=== PATIENT | female | born 1995 | race Caucasian/White ===

== ENCOUNTER 2017-02-09 17:25 | Emergency (ER) | payer OTHER ==
[~2017-02-09] VITALS: Ht 172.7 cm; Wt 81.6 kg
[~2017-02-09 17:25] MED LIST: ALBUTEROL0.09 MG/A1 INH; AMOXICILLIN500 M3 PO; AUGMENTIN 875-875 MG PO; BACTRIM DS 8001 TA1 PO; FLOVENT DI250 MCG/Ac INH; Flovent 220 M220 MCG INH; KEFLEX500 MG PO; MEDROL DOSEPAK4 MG PO; MOTRIN800 MG PO; NICODERM C14 MG/241 T; PAROXETINE HCL10 MG PO; PAXIL10 MG PO; PREDNISONE10 MG PO; PREDNISONE20 M1 PO; PROAIR HFA8.5 GM IH; SILVADENE1% TP; VENTOLIN H0.09 MG/AC INH; VIBRAMYCIN HYC100 MG PO; ZITHROMAX250 MG PO
[2017-02-09 17:29] VITALS: BP 129/90
[2017-02-09] MEDS ORDERED: VENTOLIN H0.09 MG/AC INH (17:30)
[2017-02-09] MEDS ORDERED: TRINTELLIX20 MG PO (17:30)
[2017-02-09 17:59] LABS: BASO # 0.1 10*3/uL (0.0-0.1); BASO % 0.9 % (0.0-1.0); EOS % 0.5 % (1.0-4.0); HEMATOCRIT 44.9 % (37.0-47.0); HEMOGLOBIN 15.2 g/dl (12.0-16.0); LYMPH % 36.3 % (27.0-41.0); MEAN CORPUSCULAR HGB 30.5 pg (27.0-31.0); MEAN CORPUSCULAR HGB CONC 33.9 g/dl (33.0-37.0); MEAN PLATELET VOLUME 8.9 fl (9.6-12.3); MONO # 0.5 10*3/uL (0.1-1.0); MONO % 5.9 % (3.0-9.0); NEUT # 4.6 10*3/uL (2.3-7.9); NEUT % 56.2 % (47.0-73.0); PLATELET COUNT AUTOMATED 344 10*3/uL (130-400); RED BLOOD COUNT 4.99 10*6/uL (4.10-5.10); RED CELL DISTRI WIDTH 12.1 % (0-14.5); WHITE BLOOD COUNT 8.2 10*3/uL (4.8-10.8)
[2017-02-09] MEDS ORDERED: CLARITIN10 MG PO (18:04)
[2017-02-09] MEDS ORDERED: FLONASE ALLERG9.9 ML NAS (18:04)
[2017-02-09] MEDS ORDERED: PREDNISONE10 MG PO (18:04)
[2017-02-09 18:15] LABS: ALBUMIN 4.1 gm/dl (3.1-4.5); ALKALINE PHOSPHATASE 64 U/L (45-117); BILIRUBIN, TOTAL 0.2 mg/dl (0.2-1.0); BUN 5 mg/dl (7-24); CARBON DIOXIDE 23 mmol/L (21-32); CHLORIDE 113 mmol/L (98-107); EST GLOM FILT AFRICAN AMERICAN > 60 ml/min; GLUCOSE 92 mg/dL (65-99); POTASSIUM 4.1 mmol/L (3.5-5.1); SGOT/AST 12 IU/L (3-35); SGPT/ALT 25 U/L (12-78); SODIUM 146 mmol/L (136-145); TOTAL PROTEIN 7.9 gm/dL (6.4-8.2)
== END 2017-02-09 18:29 | disposition home or self-care (01) ==
LOC: ED 17:25
PROVIDERS: Nurse Practitioner Family
DX: J45.901 Unspecified asthma with (acute) exacerbation (principal); R03.0 Elevated blood-pressure reading, without diagnosis of hypertension; F17.200 Nicotine dependence, unspecified, uncomplicated; Z79.899 Other long term (current) drug therapy

== ENCOUNTER 2017-05-16 15:26 | Emergency (ER) | payer OTHER ==
[~2017-05-16] VITALS: Ht 172.7 cm; Wt 81.6 kg
[~2017-05-16 15:26] MED LIST changes: +CLARITIN10 MG PO; +FLONASE ALLERG9.9 ML NAS; +TRINTELLIX20 MG PO
[2017-05-16 15:34] VITALS: BP 130/82
[2017-05-16] MEDS ORDERED: PREDNISONE10 MG PO (15:41)
[2017-05-16] MEDS ORDERED: PROAIR HFA8.5 GM INH (15:41)
== END 2017-05-16 20:08 | disposition home or self-care (01) ==
LOC: ED 15:26
DX: J45.901 Unspecified asthma with (acute) exacerbation (principal); R03.0 Elevated blood-pressure reading, without diagnosis of hypertension; F17.200 Nicotine dependence, unspecified, uncomplicated; Z79.899 Other long term (current) drug therapy

== ENCOUNTER 2017-05-17 12:03 | Emergency (ER) | payer OTHER ==
[~2017-05-17] VITALS: Ht 172.7 cm; Wt 81.6 kg
[~2017-05-17 12:03] MED LIST changes: +PROAIR HFA8.5 GM INH
[2017-05-17 12:06] VITALS: BP 127/81
== END 2017-05-17 13:11 | disposition home or self-care (01) ==
LOC: ED 12:03
DX: M25.562 Pain in left knee (principal); R03.0 Elevated blood-pressure reading, without diagnosis of hypertension; F17.200 Nicotine dependence, unspecified, uncomplicated; Z79.899 Other long term (current) drug therapy

== ENCOUNTER 2017-11-11 17:03 | Emergency (ER) | payer OTHER ==
[~2017-11-11] VITALS: Wt 81.6 kg
[2017-11-11 17:08] VITALS: BP 102/60
[2017-11-11] MEDS ORDERED: BROMFED DM COU118 M2 PO (17:18)
[2017-11-11] MEDS ORDERED: OMNICEF300 MG PO (17:18)
== END 2017-11-11 17:27 | disposition home or self-care (01) ==
LOC: ED 17:03
DX: J01.10 Acute frontal sinusitis, unspecified (principal); J06.9 Acute upper respiratory infection, unspecified; R05 Cough; F17.200 Nicotine dependence, unspecified, uncomplicated; Z79.899 Other long term (current) drug therapy

== ENCOUNTER 2018-11-09 16:42 | Emergency (ER) | payer OTHER ==
[~2018-11-09] VITALS: Ht 172.7 cm; Wt 81.6 kg
[~2018-11-09 16:42] MED LIST changes: +BROMFED DM COU118 M2 PO; +OMNICEF300 MG PO
[2018-11-09 16:44] VITALS: BP 129/81
[2018-11-09] MEDS ORDERED: IBU800 MG PO (17:23)
[2018-11-09] MEDS ORDERED: PENICILLIN VK500 MG PO (17:23)
== END 2018-11-09 17:46 | disposition home or self-care (01) ==
LOC: ED 16:42
DX: K08.89 Other specified disorders of teeth and supporting structures (principal); F17.290 Nicotine dependence, other tobacco product, uncomplicated; Z79.899 Other long term (current) drug therapy

== ENCOUNTER → 2024-09-25 | Outpatient (CLI) | payer BC ==
[~2024-09-25] MED LIST changes: +IBU800 MG PO; +PENICILLIN VK500 MG PO
== END | disposition home or self-care (01) ==
LOC: US 09:30
PROVIDERS: ATTEND Internal Medicine Nephrology
DX: K76.0 Fatty (change of) liver, not elsewhere classified (principal); R74.8 Abnormal levels of other serum enzymes

== ENCOUNTER → 2025-02-01 | Outpatient (CLI) | payer BC | END | disposition home or self-care (01) | LOC: US 14:00 | PROVIDERS: ATTEND Internal Medicine Nephrology | DX: M79.604 Pain in right leg (principal) ==